=== PATIENT | female | born 1965 | race Caucasian/White ===

== ENCOUNTER 2019-05-01 14:01 | Inpatient (IN) | payer OTHER ==
[~2019-05-01] VITALS: Ht 163.8 cm; Wt 71.7 kg
--- NOTE | 2019-05-01 14:23 | NUR ---
PT BIB SELF C/O "Cough/congestion [id number] worse today feel SOB" PT IS AAOX4, NOT IN RESPIRATORY DISTRESS, HOOKED TO MONITOR, KEPT RESTED AND COMFORTABLE, WILL CONTINUE TO MONITOR.
--- NOTE | 2019-05-01 14:43 | NUR ---
NORA MARCH AT BEDSIDE FOR EVAL.
--- NOTE | 2019-05-01 14:45 | NUR ---
RT AT BEDSIDE FOR BREATHING TREATMENT.
[2019-05-01] MEDS ORDERED: ALBUTEROL FS 2.5 MG/3 ML VIAL.NEB ONE (14:53)
[2019-05-01] MEDS ORDERED: IPRATROPIUM NEB FS 0.5 MG/2.5 ML AMPUL.NEB ONE (14:53)
[2019-05-01] MEDS ORDERED: DEXAMETHASONE SOD PHOSPHATE 10 MG/ML VIAL ONE (14:57)
[2019-05-01] MEDS ORDERED: ALBUTEROL FS 2.5 MG/3 ML VIAL.NEB NEB ONE (15:00)
[2019-05-01] MEDS ORDERED: IPRATROPIUM NEB FS 0.5 MG/2.5 ML AMPUL.NEB NEB ONE (15:00)
[2019-05-01] MEDS ORDERED: IV NS 0.9% 1,000 ML BAG IV ONE (15:00)
[2019-05-01] MEDS ORDERED: DEXAMETHASONE SOD PHOSPHATE 4 MG/ML VIAL IM ONE (15:00)
--- NOTE | 2019-05-01 15:12 | NUR ---
BRAILLE PROOFREADER AT BEDSIDE FOR XRAY.
[2019-05-01] MEDS ORDERED: CEFTRIAXONE 1GM BAG (ER ONLY) 50 ML IV ONE ×2 (16:00→16:05)
[2019-05-01 16:14] LABS: BASOPHILS % (AUTO) 0.4 % (0.0-2.0); EOSINOPHILS % (AUTO) 1.5 % (0.0-6.0); HEMATOCRIT 35 % (33-45); HEMOGLOBIN 11.6 g/dL (11.5-14.8); LYMPHOCYTES # (AUTO) 0.6 /CMM (0.8-4.8); MEAN CORPUSCULAR HGB CONC 34 g/dl (31.0-36.0); MEAN CORPUSCULAR VOLUME 88 fL (82-100); MONOCYTES # (AUTO) 0.8 /CMM (0.1-1.30); NEUTROPHILS # (AUTO) 8.2 /CMM (1.8-8.9); NEUTROPHILS % (AUTO) 84.1 % (43.0-81.0); PLATELET COUNT (AUTO) 395 /CMM (150-450); RED BLOOD CELL COUNT(AUTO) 3.96 MIL/uL (4.0-5.2); WHITE BLOOD COUNT (AUTO) 9.7 K/uL (4.3-11.0)
[2019-05-01 16:19] LABS: CREATININE 0.7 mg/dL (0.6-1.3); POTASSIUM 3.5 mmol/L (3.5-5.1)
--- NOTE | 2019-05-01 16:30 | NUR ---
WILFREDO IVORY GAVE TELE BED 118-1.
--- NOTE | 2019-05-01 17:50 | NUR ---
REPORT GIVEN TO KYLE DRAKE FOR LAURIE.
[2019-05-01] MEDS ORDERED: TEMAZEPAM 15 MG CAPSULE PO PRN (18:00)
[2019-05-01] MEDS ORDERED: ONDANSETRON HCL/PF 4 MG/2 ML VIAL IVP PRN (18:00)
[2019-05-01] MEDS ORDERED: IPRATROPIUM NEB FS 0.5 MG/2.5 ML AMPUL.NEB NEB PRN (18:00)
[2019-05-01] MEDS ORDERED: MAGNESIUM HYDROXIDE 30 ML UDC PO PRN (18:00)
[2019-05-01] MEDS ORDERED: ALBUTEROL FS 2.5 MG/3 ML VIAL.NEB NEB PRN (18:00)
[2019-05-01] MEDS ORDERED: MAG HYDROX/AL HYDROX/SIMETH 30 ML UDC PO PRN (18:00)
[2019-05-01] MEDS ORDERED: GUAIFENESIN 300 MG/15 ML UDC PO PRN (18:00)
[2019-05-01 18:44] VITALS: BP 119/71
[2019-05-01] MEDS: IV NS 0.9% 1,000 ML IV PRN (18:48)
--- NOTE | 2019-05-01 19:00 | NUR ---
RN NOTE: PATIENT RECEIVED FROM ER ALERT AWAKE ORIENTED X 4. ON 1 LPM O2 VIA NC, NO BREATHING DISTRESS NOTED AT THIS TIME. DENIES CHEST PAIN & DISCOMFORT. ROOM ORIENTATION PROVIDED. SAFETY MEASURES OBSERVED. CALL LIGHT WITHIN REACH. WILL CONTINUE TO MONITOR.
--- NOTE | 2019-05-01 19:30 | NUR ---
MS RN OPENING NOTE RECEIVED PATIENT A/OX4 WITH SLIGHT SOB O2 SAT AT 91%. APPLIED NC 5L OF O2 AND INCREASED TO 95% WILL CONTINUE TO MONITOR PATIENT. PATIENT HAS A LAC IV #20G WITH NS RUNNING AT 75ML/HR. PATIENT IS AMBULATORY WITH BRP. SKIN IS INTACT. ALL SAFETY PRECAUTIONS APPLIED. WILL CONTINUE TO MONITOR PATIENT
[2019-05-01 20:00] VITALS: BP 120/85
[2019-05-01] MEDS: HYDROCODONE/APAP 5/325MG 1 EACH TABLET PO PRN (20:31)
[2019-05-02 04:00] VITALS: BP 125/73
[2019-05-02 06:30] LABS: BASOPHILS % (AUTO) 0.2 % (0.0-2.0); HEMATOCRIT 36 % (33-45); LYMPHOCYTES # (AUTO) 0.3 /CMM (0.8-4.8); LYMPHOCYTES % (AUTO) 3.6 % (20.0-44.0); MEAN CORPUSCULAR HGB CONC 33 g/dl (31.0-36.0); MEAN CORPUSCULAR VOLUME 87 fL (82-100); MONOCYTES # (AUTO) 0.6 /CMM (0.1-1.30); MONOCYTES % (AUTO) 6.2 % (2.0-12.0); NEUTROPHILS # (AUTO) 8.5 /CMM (1.8-8.9); PLATELET COUNT (AUTO) 468 /CMM (150-450); RED BLOOD CELL COUNT(AUTO) 4.15 MIL/uL (4.0-5.2); WHITE BLOOD COUNT (AUTO) 9.4 K/uL (4.3-11.0)
[2019-05-02 06:53] LABS: CALCIUM, SERUM 9.1 mg/dL (8.5-10.1); CREATININE 0.6 mg/dL (0.6-1.3); MAGNESIUM 2.3 mg/dL (1.8-2.4); PHOSPHORUS 2.9 mg/dL (2.5-4.9); POTASSIUM 4.3 mmol/L (3.5-5.1)
[2019-05-02 06:56] LABS: THYROID STIMULATING HORMONE 0.315 uIU/mL (0.358-3.74)
--- NOTE | 2019-05-02 07:30 | NUR ---
MS RN OPENING NOTE RECEIVED PATIENT A/OX4 WITH SLIGHT SOB, ON 5 L NC SATURATING 93%. CALLED RT FOR THE BREATHING TX. PATIENT HAS A LAC IV #20G WITH NS RUNNING AT 75ML/HR. PATIENT COMPLAINS OF MILD CHEST PAIN AT THIS TIME. CHARGE NURSE NATALIE MADE AWARE. ACCORDING TO NATALIE THERE IS NO NEED TO DO EKG AT THIS TIME. WILL HAVE THE PT BREATHING TX AND MONITOR THE CHEST PAIN. ALL SAFETY PRECAUTIONS APPLIED. PATIENT IS AMBULATORY WITH BRP. WILL CONTINUE TO MONITOR CLOSELY.
[2019-05-02 08:00] VITALS: BP 125/76
--- NOTE | 2019-05-02 08:09 | NUR ---
MS RN CLOSING NOTE PATIENT IN BED WITH NO SIGNS OF DISCOMFORT. HAS ON 5L OF 02 WITH AEROSOL WITH SAT AT 95%. SO COMPLAINTS OF ANY SOB. ALL SAFETY PRECAUTIONS APPLIED. ENDORSED PATIENT TO MORNING NURSE.
--- NOTE | 2019-05-02 08:34 | NUR ---
MS RN NOTE PT GOT BREATHING TX. CHEST PAIN 3 OUT OF 10. ON NC 6L SATURATING 95%. PT HAVE DRY COUGH AT THIS TIME. WILL CONT TO MONITOR.
[2019-05-02] MEDS ORDERED: ZOLPIDEM TARTRATE 10 MG TABLET PO PRN (10:00)
[2019-05-02] MEDS: ACETYLCYSTEINE 10% SOLN 400 MG/4 ML VIAL NEB SCH ×3 (11:03→23:30)
[2019-05-02] MEDS: IPRATROPIUM NEB FS 0.5 MG/2.5 ML AMPUL.NEB NEB SCH ×4 (11:03→23:30)
[2019-05-02] MEDS: ALBUTEROL FS 2.5 MG/3 ML VIAL.NEB NEB SCH ×4 (11:03→23:30)
--- NOTE | 2019-05-02 11:35 | NUR ---
RN MS NOTE DR. PALAFOX AT BEDSIDE AND MADE AWARE ABOUT PATIENT'S CHEST PAIN. HE SAID IT IS B/C OF TOO MUCH COUGHING. WILL CON' TO MONITOR.
[2019-05-02] MEDS: AZITHROMYCIN 250 MG TABLET PO SCH (11:46)
[2019-05-02] MEDS: HYDROCODONE/APAP 5/325MG 1 EACH TABLET PO PRN (13:46)
[2019-05-02] MEDS: ACETAMINOPHEN 325 MG TABLET PO PRN ×2 (15:47→21:47)
[2019-05-02 16:00] VITALS: BP_SYST 108; BP_DIAS 53; BP_DIAS 61
[2019-05-02] MEDS: CEFTRIAXONE 1 G in IV D5W 50 ML IV SCH (16:14)
[2019-05-02] MEDS: IV NS 0.9% 1,000 ML IV PRN (17:39)
--- NOTE | 2019-05-02 18:52 | NUR ---
MS RN CLOSING NOTE PATIENT IN BED WITH NO SIGNS OF DISCOMFORT. ON 6L OF O2 NC SATURATING 95%. RESPIRATION EVEN AND UNLABORED. NO COMPLAINTS OF PAIN AT THIS TIME. NO SIGNIFICANT CHANGE DURING THE SHIFT. ALL SAFETY PRECAUTIONS APPLIED. BED LOCKED AND LOW, SIDE RIALS UP X2, CALL LIGHT WITHIN REACH. WILL ENDORSE TO PM NURSE FOR LAURIE.
--- NOTE | 2019-05-02 19:10 | NUR ---
MS RN NOTES Received pt A/O X4, awake, on Marinelli's position on bed with O2 inhalation via NC @ 5LPM, saturating well, no SOB/respiratory distress noted, occasional non-productive cough noted Patient denies discomfort at this time. With patent peripheral IV line LAC G# 20 with NS infusing well @ 75ml/hr as ordered, no s/s of infiltration noted. Discussed the POC for the night stocker, inquiries answered. On breathing treatment by RT as ordered. Kept bed low and locked, siderails x2 up, call light within easy reach. Will continue to monitor accordingly.
[2019-05-02 20:00] VITALS: BP 123/70
--- NOTE | 2019-05-02 20:35 | NUR ---
MS KYLE NOTES Endorsed to KYLE Glover for LAURIE.
[2019-05-02 21:00] VITALS: BP 123/70
[2019-05-02 21:50] VITALS: BP 117/60
--- NOTE | 2019-05-02 21:50 | NUR ---
RN NOTE: PATIENT NOTED WITH FEVER OF 102.6F. TYLENOL 650 MG GIVEN AND COOLING MEASURES DONE, RECHECKED AFTER 30 MINS, FEVER WENT DOWN TO 101.6F. ON IV NS 0.9% AT 75 MLS/HR AND TOLERATING WELL. NOTIFIED BHARATH BLAND WITH NEW ORDERS CARRIED OUT. WILL CONT. TO MONITOR. Addendum: 05/03/19 at 0100 by EDISON VENEGAS RN PATIENT'S V/S CHECKED: BP 117/60, RR 21, TEMP 102.6F, HR 110.
--- NOTE | 2019-05-02 23:45 | NUR ---
RN NOTE: CALLED LAB FOR URINE SPECIMEN READY FOR [employer].
[2019-05-03] VITALS (7 sets, daily range): BP systolic 104–130; BP diastolic 63–72
[2019-05-03] MEDS: IPRATROPIUM NEB FS 0.5 MG/2.5 ML AMPUL.NEB NEB SCH ×6 (03:30→23:16)
[2019-05-03] MEDS: ALBUTEROL FS 2.5 MG/3 ML VIAL.NEB NEB SCH ×6 (03:30→23:16)
--- NOTE | 2019-05-03 05:30 | NUR ---
RN NOTE: MASTIC MAN REPORTED THAT PATIENT'S LAST BM WAS 2 DAYS AGO. OFFERED TO ADMINISTER MOM LAXATIVE TO PATIENT. PATIENT DECLINED AT THIS TIME. RISKS AND BENEFITS EXPLAINED.
[2019-05-03] MEDS: ACETAMINOPHEN 325 MG TABLET PO PRN ×3 (05:58→23:41)
[2019-05-03] MEDS: IV NS 0.9% 1,000 ML IV PRN (05:59)
--- NOTE | 2019-05-03 06:00 | NUR ---
RN NOTE: PATIENT NOTED WITH FEVER OF 101.2F. TYLENOL 650 MG ORDERED GIVEN AND COOLING MEASURES DONE TOLERATED, RECHECKED AFTER 30 MINS, CAME DOWN TO 100.2F. WILL ENDORSE TO AM SHIFT NURSE.
--- NOTE | 2019-05-03 07:20 | NUR ---
RN OPENING NOTES: PATIENT IN BED, AWAKE, AND VERBALLY RESPONSIVE. NO SOB. NO C/O PAIN. SPUTUM COLLECTION STILL PENDING. ENDORSED TO NEXT SHIFT NURSE FOR CONTINUITY OF CARE.
--- NOTE | 2019-05-03 08:00 | NUR ---
MS RN NOTES RECEIVED PT IN BED A/OX4. ON 6 L NC WITH HUMIDIFIER O2 SAT 94%.SPUTUM SAMPLE TAKEN AND INFORMED LAB. PT IS AMBULATORY. CALL LIGHT WITHIN REACH , IV SITE PATEN AN FLUSHED, BED LOCKED AT LOWEST POSITION.
[2019-05-03] MEDS: ACETYLCYSTEINE 10% SOLN 400 MG/4 ML VIAL NEB SCH ×3 (08:32→23:16)
[2019-05-03] MEDS: AZITHROMYCIN 250 MG TABLET PO SCH (09:16)
--- NOTE | 2019-05-03 10:00 | NUR ---
MS RN NOTES PT WAS ABLE TO PROVIDE WITH SPUTUM CULTURE. SENT TO LAB.
[2019-05-03] MEDS: methylPREDNISolone SOD SUCC 40 MG/ML VIAL IV SCH ×2 (10:57→16:08)
[2019-05-03] MEDS: CEFTRIAXONE 1 G in IV D5W 50 ML IV SCH (16:02)
[2019-05-03] MEDS: LACTOBACILLUS RHAMNOSUS GG 1 EACH CAP.SPRINK PO SCH (17:09)
--- NOTE | 2019-05-03 19:20 | NUR ---
MS RN NOTES PT IN BED SITTING COMFORTABLY. NO SIGNS OF SOB AND DISCOMFORT NOTED. BED AT THE LOWEST POSITION LOCKED. CALL LIGHT WITHIN REACH. ALL NEED ATTENDED, NO CHANGES DURING SHIFT. ENDORSED TO STEM TEACHER NURSE FOR LAURIE.
--- NOTE | 2019-05-03 23:57 | NUR ---
[id number] PT A/ORX4 SMILING VERBALIZING HER NEEDS CALL LIGHT WITHIN REACH BED ALARM ON REMINDED SHE NEEDS TO CALL FOR ASSIST WHEN GETTING OOB
[2019-05-04] MEDS: IV NS 0.9% 1,000 ML IV PRN (01:16)
[2019-05-04 04:31] VITALS: BP 117/77
[2019-05-04] MEDS: ALBUTEROL FS 2.5 MG/3 ML VIAL.NEB NEB SCH ×5 (04:34→20:20)
[2019-05-04] MEDS: IPRATROPIUM NEB FS 0.5 MG/2.5 ML AMPUL.NEB NEB SCH ×5 (04:34→20:20)
--- NOTE | 2019-05-04 05:34 | NUR ---
ENDING NOTES: ALERT AND ORIENTATED X4 SPEAKS OF GOING HOME IN THIS AM. NO COUGHING SPELLS THIS 12 HOURS. ENJOYING COFFEE AT THIS TIME IN [employer] SPIRITS
--- NOTE | 2019-05-04 07:34 | NUR ---
MS RN OPENING NOTES Patient received on room air, no sob noted, a/o x4 at this time. Patient denies pain and is comfortable on her bed. L AC 20 gauge NS@75mL per hour and is flowing well. Patient denies pain at this time. Bed at the lowest setting, call light within reach, side rails up x2.
[2019-05-04] MEDS: ACETYLCYSTEINE 10% SOLN 400 MG/4 ML VIAL NEB SCH ×2 (07:43→15:23)
[2019-05-04] MEDS: AZITHROMYCIN 250 MG TABLET PO SCH (09:03)
[2019-05-04] MEDS: LACTOBACILLUS RHAMNOSUS GG 1 EACH CAP.SPRINK PO SCH ×2 (09:04→16:46)
[2019-05-04] MEDS: methylPREDNISolone SOD SUCC 40 MG/ML VIAL IV SCH ×2 (09:04→16:46)
[2019-05-04 12:00] VITALS: BP 117/77
[2019-05-04] MEDS ORDERED: ZOLPIDEM TARTRATE 10 MG TABLET PO PRN (13:00)
[2019-05-04] MEDS: CEFTRIAXONE 1 G in IV D5W 50 ML IV SCH (15:22)
[2019-05-04] MEDS: HYDROCODONE/APAP 5/325MG 1 EACH TABLET PO PRN ×2 (15:28→22:43)
[2019-05-04 16:00] VITALS: BP 121/73
--- NOTE | 2019-05-04 18:57 | NUR ---
MS RN CLOSING NOTES Patient remains on room air, no sob noted, patient denies pain at this time. A/O x4, ambulatory with good balance. Regular diet, with L AC 20 g NS 75 ml per hour. Patients oxymetry at rest was 88% spo2 with a HR of 102. Oxymetry while walking was 92% spo2 with HR of 120. Paper in the chart. Bed at the lowest setting, call light within reach, side rails up x2. Will give report to NOC RN for LAURIE bedside.
--- NOTE | 2019-05-04 19:50 | NUR ---
RN NOTES RECEIVED PATIENT AWAKE ALERT ORIENTED X4. DENIES ANY PAIN OR DISCOMFORT AT THIS TIME. SAFETY MEASURES IN PLACE, CALL LIGHT WITHIN EASY REACH, IV ON HER LEFT AC G#20 NS AT 75 ML/HR INTACT PATENT AND INFUSING WELL, BED IN LOW LOCKED POSITION, ASPIRATION PRECAUTION EMPHASIZED, ALL NEEDS ATTENDED, WILL MONITOR ACCORDINGLY.
[2019-05-04 20:00] VITALS: BP 116/75
[2019-05-04 20:20] VITALS: BP 116/75
[2019-05-04 20:23] VITALS: BP 116/75
[2019-05-04 21:06] LABS: *MYCOPLASMA PNEUMONIAE IgG 3038 U/mL (0-99); *MYCOPLASMA PNEUMONIAE IgM 4677 U/mL (0-769)
--- NOTE | 2019-05-04 22:43 | NUR ---
RN NOTES PATIENT COMPLAINTS OF UPPER BACK AND ABDOMINAL PAIN 6/10 PAIN SCALE, NORCO 5-325MG PRN ORDER P0ER PATIENT REQUEST, WILL CONTINUE TO MONITOR.
[2019-05-05] MEDS: ACETYLCYSTEINE 10% SOLN 400 MG/4 ML VIAL NEB SCH ×2 (00:04→07:55)
[2019-05-05] MEDS: IPRATROPIUM NEB FS 0.5 MG/2.5 ML AMPUL.NEB NEB SCH ×4 (00:04→11:30)
[2019-05-05] MEDS: ALBUTEROL FS 2.5 MG/3 ML VIAL.NEB NEB SCH ×4 (00:04→11:15)
[2019-05-05 04:07] VITALS: BP 112/71
[2019-05-05 04:30] VITALS: BP 112/71
--- NOTE | 2019-05-05 06:44 | NUR ---
RN NOTES ALL NEEDS ATTENDED AND MET, ABLE TO REST AND SLEPT AT INTERVALS, SAFETY MEASURES IN PLACED, CALL LIGHT WITHIN REACH. WILL ENDORSE TO AM NURSE FOR CONTINUITY OF CARE.
[2019-05-05 08:00] VITALS: BP 124/78
[2019-05-05] MEDS: methylPREDNISolone SOD SUCC 40 MG/ML VIAL IV SCH (08:24)
[2019-05-05] MEDS: LACTOBACILLUS RHAMNOSUS GG 1 EACH CAP.SPRINK PO SCH (08:24)
[2019-05-05] MEDS: AZITHROMYCIN 250 MG TABLET PO SCH (10:28)
--- NOTE | 2019-05-05 14:10 | NUR ---
RN DC NOTE RECEIVED ORDER FOR D/C TO HOME BY LAYLA MEAD DNP. PATIENT SEEN BY PUL + LAYLA MEAD, PRESCRIPTION PROVIDED TO PATIENT. NO SOB, ON ROOM AIR, POST AMBULATION SPO2 94%. DAUGHTER AT BEDSIDE, DRIVING PATIENT HOME. IV CATHETER REMOVED INTACT. NO S/S BLEEDING. PRESSURE DRESSING APPLIED. DC EDUCATION PROVIDED. INSTRUCTED TO F/U WITH DR. RUBIO IN TWO WEEKS. BELONGINGS CHECKLIST SIGNED AND PLACED IN CHART. NO WOUND PICTURES TO BE TAKEN.
== END 2019-05-05 14:16 | disposition home or self-care (01) | DRG 194 ==
LOC: ER 14:08 → TELE1 17:24 → MEDSG1 18:35
PROVIDERS: ADMIT Nurse Practitioner Acute Care; ATTEND Nurse Practitioner Acute Care
DX: J15.7 Pneumonia due to Mycoplasma pneumoniae (principal); E87.1 Hypo-osmolality and hyponatremia; J15.9 Unspecified bacterial pneumonia; E86.0 Dehydration; E86.1 Hypovolemia; J45.909 Unspecified asthma, uncomplicated; K21.9 Gastro-esophageal reflux disease without esophagitis
CPT/HCPCS: 36415; 71045-TC; 80048-TC; 83605-TC; 83735-TC; 84100-TC; 84443-TC; 85025-TC; 86738; 87040-TC; 87070-TC; 87081-TC; 87086-TC; 87449; 94799-TC; G0378; J0696; J1100; J2920; J7030; J7060